=== PATIENT | male | born 1995 | race Caucasian/White ===

== ENCOUNTER 2016-06-14 15:45 | Emergency (ER) | payer OTHER ==
[2016-06-14 15:53] VITALS: RESP 16; TEMP 98.2; O2SAT 94
[2016-06-14] MEDS ORDERED: TDAP ADULT 0.5 ML INJ (BOOSTRIX) IM ONE (16:14)
--- NOTE | 2016-06-14 16:18 | EDPHY ---
H & P Time Seen by Provider: 06/14/16 15:56 HPI/ROS: CHIEF COMPLAINT: dog bite to face HISTORY OF PRESENT ILLNESS: 21-year-old male presents emergency department with multiple dog bites to his face from breaking up a dog fight at the dog park. Patient states the dog's immunizations are up-to-date, his tetanus is not up-to-date. He denies other complaints. Smoking Status: Current every day smoker Physical Exam: GEN: Awake, alert, oriented, no acute distress RESP: nl resp effort MSK: Normal SKIN: 2mm puncture to forehead, 1cm laceration to left cheek, 2mm superficial puncture to left eyebrow, 1cm laceration to lower lip. Constitutional: Initial Vital Signs Temperature (C) 36.8 C 06/14/16 15:50 Heart Rate 93 06/14/16 15:50 Respiratory Rate 16 06/14/16 15:50 Blood Pressure 146/110 H 06/14/16 15:50 O2 Sat (%) 94 06/14/16 15:50 O2 Delivery Mode Room Air Allergies/Adverse Reactions: No Known Allergies Allergy (Unverified 11/07/11 19:23) Home Medications: Medication Instructions Recorded Vibrid 02/21/15 Vyvanse 02/21/15 Amoxicillin/Clavulanate Pot 875 mg PO BID #10 tab 06/14/16 [Augmentin 875Mg] MDM/Departure - MDM Procedures: Procedures : 2 Laceration repairs. Verbal consent was obtained from the patient. The 1 cm laceration to lip and 1 cm laceration to left cheek were anesthetized 1% lidocaine with epinephrine. The wounds were carefully irrigated by the emergency department soil conservation technician. Next, the wound was prepped and draped in sterile fashion and explored to its base with a gloved finger. There were no deep structures involved. No vascular injury was identified. No foreign bodies were identified. Lip laceration was repaired with 1 simple interrupted 5 0 Vicryl deep, 5 simple interrupted 6.0 Prolene. Left cheek laceration repaired with #3 6.0 Prolene simple interrupted sutures. The wound repair was simple. The procedure was performed by myself. Tetanus and antibiotic status were addressed. Medications Given: Discontinued Medications Diphtheria/Tetanus/Acell Pertussis (Boostrix) 0.5 ml IM .ONCE ONE Stop: 06/14/16 16:15 Last Admin: 02/04/17 16:25 Dose: 0.5 ml ED Course/Re-evaluation: 445pm- Animal control at bedside. - Depart Disposition: Home, Routine, Self-Care Clinical Impression: Dog bite of face Qualifiers: Encounter type: initial encounter Qualifier Code: (S01.85XA) Open bite of other part of head, initial encounter Condition: Good Instructions: Animal Bite (ED) Additional Instructions: Wash daily with soap and water. Take your antibiotics as prescribed. Take 600 mg of ibuprofen every 8 hours with food for pain, take [place] for severe pain. Return to the emergency department in 5 days for suture removal, return sooner for any signs of infection, increasing pain, increasing redness, drainage from wounds. Prescriptions: Amoxicillin/Clavulanate Pot [Augmentin 875Mg] 875 mg PO BID #10 tab Referrals: FAISAL BRAVO [Primary Care Provider] - As per Instructions
[2016-06-14 17:16] VITALS: BP 126/88; PULSE 83
== END 2016-06-14 17:17 | disposition home or self-care (01) ==
PROC: 0CQ1XZZ Repair Lower Lip, External Approach (ICD-10-PCS; principal; 2016-06-14)
PROC: 0HQ1XZZ Repair Face Skin, External Approach (ICD-10-PCS; 2016-06-14)
DX: S01.85XA Open bite of other part of head, initial encounter (principal); F17.200 Nicotine dependence, unspecified, uncomplicated; Z23 Encounter for immunization; W54.0XXA Bitten by dog, initial encounter; Y92.830 Public park as the place of occurrence of the external cause

== ENCOUNTER 2016-10-02 20:24 | Emergency (ER) | payer OTHER ==
[2016-10-02] MEDS ORDERED: ONDANSETRON DISINTEGRATING 4 MG TAB ONE (20:35)
[2016-10-02 20:45] VITALS: BP 145/80; PULSE 63; RESP 16; TEMP 97.2; O2SAT 93
[2016-10-02] MEDS ORDERED: NS 500 ML IV ONE (20:47)
[2016-10-02] MEDS ORDERED: ONDANSETRON 4 MG/2 ML VIAL IVP ONE (20:47)
[2016-10-02] MEDS ORDERED: ONDANSETRON DISINTEGRATING 4 MG TAB PO ONE (20:47)
--- NOTE | 2016-10-02 20:50 | EDPHY ---
H & P Stated Complaint: Central abdo pain, nausea and vomiting since 1700hrs,. Time Seen by Provider: 10/02/16 20:59 HPI/ROS: CHIEF COMPLAINT: Intractable vomiting HISTORY OF PRESENT ILLNESS: This patient is a 21 year old male with history of cyclic vomiting syndrome who presents to the Emergency Department complaining of acute intractable vomiting beginning at 1700 tonight. He reports associated malaise, diffuse abdominal pain, and intermittent hot flashes. He denies diarrhea, fever, chills, or urinary complaints. He reports that he has been treated with anti-nausea medications and given fluids during prior events with some improvement. He is a regular marijuana smoker. REVIEW OF SYSTEMS: A ten point review of systems was performed and is negative with the exception of the items mentioned in the HPI. Source: Patient Exam Limitations: No limitations - Personal History Current Tetanus/Diphtheria Vaccine: Unsure Current Tetanus Diphtheria and Acellular Pertussis (TDAP): Unsure - Medical/Surgical History PMH: Cyclic vomiting syndrome. Hx Asthma: No Hx Chronic Respiratory Disease: No Hx Diabetes: No Hx Cardiac Disease: No Hx Renal Disease: No Hx Cirrhosis: No Hx Alcoholism: No Hx HIV/AIDS: No Hx Splenectomy or Spleen Trauma: No Other PMH: ADHD, depression, anxiety, uses marijuana. - Social History Smoking Status: Current every day smoker Drug Use: Marijuana Additional Social History: Mother at bedside. Smokes marijuana regularly. No tobacco use. - Physical Exam Exam: General Appearance: Alert. Appears uncomfortable. Retching. Vital signs reviewed. Blood pressure 145/80. Eyes: Pupils equal and round, no conjunctival injection, no discharge. Anicteric. ENT, Mouth: Mucous membranes are moist, no oropharyngeal erythema or edema. Neck: No lymphadenopathy, supple. Respiratory: Lungs are clear to auscultation; no wheezes, rales, or rhonchi. Cardiovascular: Regular rate and rhythm; no murmur, rub, or gallop. Gastrointestinal: Abdomen is soft and nontender, no masses or organomegaly, bowel sounds normal. Skin: Warm and dry, no rashes on exposed skin, normal color. Back: Nontender to palpation over the thoracolumbar spine. No CVAT. Extremities: No lower extremity edema, no calf tenderness or swelling. Neurological: Alert and oriented. Moving all four extremities easily and equally. Psychiatric: Normal affect. Constitutional: Initial Vital Signs Temperature (C) 36.2 C 10/02/16 20:44 Heart Rate 63 10/02/16 20:44 Respiratory Rate 16 10/02/16 20:44 Blood Pressure 145/80 H 10/02/16 20:44 O2 Sat (%) 93 10/02/16 20:44 O2 Delivery Mode Room Air Allergies/Adverse Reactions: No Known Allergies Allergy (Verified 10/02/16 20:45) Home Medications: Medication Instructions Recorded Vibrid 02/21/15 FOCALIN 10/02/16 Medical Decision Making ED Course/Re-evaluation: 4mg PO Zofran administered at time of arrival. 21-year-old male with history of cyclic vomiting syndrome presents with acute onset nausea, vomiting, and diffuse abdominal pain with no identified alleviating factors. He is alert and appears uncomfortable at time of arrival. He is hypertensive at 145/80. His abdomen is benign on exam. Will proceed with treatment for cyclic vomiting including Zofran, fluids, and Haldol. IV established. 500ml IV NS, 4mg IV Zofran, and 2mg IV Haldol administered. 0: On reevaluation, the patient is feeling better following administration of medications. Will continue to serially reevaluate in the ED. 4: On reevaluation, the patient is retching again and complains of worsening periumbilical abdominal pain. His exam remains benign. 0.5mg IV Dilaudid administered for pain. The patient is feeling better following administration of pain medication.I discussed recommendations for follow-up and customary return precautions. He will be given a take home pack of Zofran and will be discharged home in good condition. 2200: Feeling better, feels well enough to go home. I do not suspect a surgical problem such as cholecystitis or appendicitis. Differential Diagnosis: I considered a differential diagnosis that includes but is not limited to cyclic vomiting syndrome, gastroenteritis, cholecystitis, pancreatitis, and appendicitis. - Data Points Medications Given: Discontinued Medications Haloperidol Lactate (Haldol Injection) 2 mg IVP EDNOW ONE Stop: 10/02/16 21:05 Last Admin: 10/02/16 21:45 Dose: 2 mg Hydromorphone HCl (Dilaudid) 0.5 mg IVP EDNOW ONE Stop: 10/02/16 22:18 Last Admin: 10/02/16 22:26 Dose: 0.5 mg Sodium Chloride (Ns) 500 mls @ 0 mls/hr IV EDNOW ONE PRN Reason: Wide Open Stop: 10/02/16 20:48 Last Admin: 10/02/16 20:55 Dose: 500 mls Ondansetron HCl (Zofran) 4 mg IVP EDNOW ONE Stop: 10/02/16 20:48 Last Admin: 10/02/16 20:55 Dose: 4 mg Ondansetron HCl (Zofran Odt) 4 mg PO EDNOW ONE Stop: 10/02/16 20:48 Last Admin: 10/02/16 20:45 Dose: 4 mg Ondansetron HCl (Zofran Odt 4 Mg Prepack#2) 1 btl TAKEHOME EDNOW ONE Stop: 10/02/16 23:07 Last Admin: 10/02/16 23:17 Dose: 1 btl Departure - Departure Disposition: Home, Routine, Self-Care Clinical Impression: Cyclic vomiting syndrome Condition: Good Instructions: Ondansetron (By mouth), Acute Nausea and Vomiting (ED) Additional Instructions: 1. Take one tab Zofran every 4-6 hours as needed for nausea and vomiting. 2. Follow-up with your primary care provider for further evaluation if you experience recurrence of your vomiting or nausea. 3. Consider limiting or eliminating marijuana use to see if this improves your symptoms. We have seen a correlation between marijuana use and cyclic vomiting syndrome. 4. Return to the Emergency Department for uncontrollable vomiting, blood in vomiting or stool, severe abdominal pain, high fever, or for other serious concerns. Referrals: FAISAL BRAVO [Primary Care Provider] - As per Instructions Report Scribed for: Disha Price Report Scribed by: Audrey Alfaro Date of Report: 10/02/16 Time of Report: 20:59 Physician Review and Approval Statement: 10/02/16 20:50 Portions of this note were transcribed by the medical technologist generalist. I, Dr. Disha Price, personally performed the history, physical exam, and medical decision- making; and confirmed the accuracy of the information in the transcribed note.
[2016-10-02] MEDS ORDERED: HALOPERIDOL LACT 5 MG/ML INJ IVP ONE (21:04)
[2016-10-02] MEDS ORDERED: HYDROmorphONE/DILAUDID 1 MG/ML SYR IVP ONE (22:17)
[2016-10-02] MEDS ORDERED: ONDANSETRON 4MG PREPACK#2 BTL TAKEHOME ONE (23:06)
== END 2016-10-02 23:13 | disposition home or self-care (01) ==
LOC: CED 20:24
DX: G43.A0 Cyclical vomiting, in migraine, not intractable (principal); F17.200 Nicotine dependence, unspecified, uncomplicated
CPT/HCPCS: J1170; J2405